=== PATIENT | male | born 1940 | race Caucasian/White ===

== ENCOUNTER 2022-05-17 10:40 | Inpatient (IN) | payer MEDICARE, SELFPAY ==
[2022-04-22 12:31] VITALS: BMI 38.0
[2022-05-17] VITALS (8 sets, daily range): BP systolic 120–160; BP diastolic 75–86; PULSE 65–83; RESP 14–94; TEMP 36.2–36.7; O2SAT 92–99; BMI 38.0
[2022-05-17 11:28] LABS: COVID19 -Nasal RAPID Negative (Negative)
[2022-05-17] MEDS: LACTATED RINGERS 1,000 ML 42 ML IV (11:59)
--- NOTE | 2022-05-17 12:41 | P.HP_ITS ---
History of Present Illness History of Present Illness Date Patient Seen: 05/17/22 Time Patient Seen: 12:42 Chief complaint: RT TSA Narrative: Blair is a 82-year-old male with rotator cuff arthropathy which he is had for years, symptoms progressively getting worse. He has failed all nonoperative management to this point. He is had no changes in his symptoms since I last saw him in clinic. 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) CAD (coronary artery disease) Dyslipidemia Easy bruisability First degree AV block Grade II diastolic dysfunction HTN (hypertension) IVCD (intraventricular conduction defect) Osteoarthritis Thrombocytopenia Varicose veins of both lower extremities Viral encephalitis Surgical History (Updated 05/17/22 @ 11:28 by Allyson Soliman RN) History of cardiac cath History of carpal tunnel surgery of left wrist History of carpal tunnel surgery of right wrist History of total left knee replacement History of total right knee replacement Hx of bilateral cataract extraction Hx of colonoscopy Hx of oral surgery Hx of tonsillectomy S/P AVR (aortic valve replacement) (03/03/19) 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) Social History household members: spouse Smoking Status: Former smoker alcohol intake: former Meds Home Medications and Allergies Home Medications Medication Instructions Recorded Confirmed Type acetaminophen 325 mg tablet 650 mg PO DAILY PRN Pain 04/22/22 05/17/22 History aspirin 81 mg capsule 81 mg PO DAILY 04/22/22 05/17/22 History atorvastatin 80 mg tablet 80 mg PO QPM 04/22/22 05/17/22 History hydrochlorothiazide 12.5 mg tablet 12.5 mg PO DAILY 04/22/22 05/17/22 History lisinopril 5 mg tablet 5 mg PO DAILY 04/22/22 05/17/22 History terazosin 5 mg capsule 5 mg PO BEDTIME 04/22/22 05/17/22 History Allergies Allergy/AdvReac Type Severity Reaction Status Date / Time No Known Drug Allergies Allergy Verified 05/17/22 11:27 Review of Systems Review of Systems ROS: Yes All systems reviewed with the patient and are negative except as otherwise documented Exam Vital Signs (past 8 hours): - 05/17/22 11:29 Temperature 97.1 F L Pulse Rate 83 Respiratory Rate 20 Blood Pressure 160/75 H Pulse Oximetry 99 Oxygen Delivery Method Room Air Oxygen Delivery Method Room Air Narrative Exam Narrative: HEENT: Head atraumatic eyes anicteric moist mucous membranes Cardiovascular: Palpable peripheral pulses extremities are warm and well perfused Respiratory: Breathing comfortably on room air Psychiatric: Appropriate mood and affect Neuro: No acute deficits Musculoskeletal: Forward elevation 10? active due to weakness, 90? passive limited by pain. No lesions about the shoulder. Sensation intact to light to uch median, radial, ulnar nerve distributions. 2+ radial pulse with brisk capillary refill less than 2 seconds Objective Labs 05/17/22 12:30 Labs: Laboratory Results - last 24 hr 05/17/22 11:09 SARS-CoV-2 (PCR) Negative Assessment & Plan Assessment & Plan narrative: 82-year-old male with rotator cuff arthropathy Plan: Discussed moving forward with a reverse total shoulder arthroplasty which patient wished to do today. Risks and benefits of surgery were discussed again including the risk of infection, damage to internal structures, bleeding, nerve injury, instability, need for revision surgery, blood clots, anesthesia and . No guarantees were made regarding outcomes. Patient expressed understanding and accepted these risks and wished to go forward with surgery and consent was signed. Patient expressed understanding with the risks. Consent was signed and his right shoulder was marked with my initials.
[2022-05-17 12:43] LABS: Add Manual Diff / Slide Review NO; Basophils Absolute Auto 0 /uL (0-100); Basophils Percent Auto 0.5 % (0-2); Eosinophils Absolute Auto 100 /uL (0-450); Eosinophils Percent Auto 1.6 % (2-4); Hematocrit 42.6 % (41-53); Hemoglobin 14.4 g/dL (13.5-17.5); Lymphocytes Absolute Auto 800 /uL (1100-4500); Lymphocytes Percent Auto 11.3 % (25-40); Mean Corpuscular HGB Conc 33.8 % (30-36); Mean Corpuscular Volume 88.9 fL (80-100); Monocytes Absolute Auto 700 /uL (0-900); Monocytes Percent Auto 9.6 % (3-14); Neutrophils Absolute Auto 5400 /uL (1500-7000); Platelet Count 97 X10^3/uL (150-400); Red Cell Distribution Width 13.3 % (11.6-14.8)
--- NOTE | 2022-05-17 13:11 | SUR.PREOP ---
Block start time [1315] . Monitoring initiated and maintained throughout procedure. Oxygen and medications given per anesthesiologist instructions. Patient remained stable throughout procedure, no adverse reactions noted. Block end time [1320].
--- NOTE | 2022-05-17 13:22 | SUR.PREOP ---
Nerve block completed with no complications.
[2022-05-17] MEDS: CEFAZOLIN VIAL 1 GM in SODIUM CHLORIDE 0.9% 100 ML IV (13:45)
[2022-05-17] MEDS: CEFAZOLIN 2 GM/100 ML PREMIX 100 ML IV (13:45)
[2022-05-17] MEDS: TRANEXAMIC ACID 1,000 MG VIAL 1000 MG INJ ×2 (13:59→15:14)
--- NOTE | 2022-05-17 14:07 | SUR.OPER ---
Beach chair with Skytron shoulder positioner. Lower body on padded OR bed. Head in foam padded head cradle, secured with straps. Non-operative arm secured <90 degrees abduction, at side padded by pillows and secured with tape. Pillows under knees. Safety belt at thigh. Cloth tape over blanket over lower legs. Cloth tape over torso to secure
[2022-05-17] MEDS: BUPIVACAINE 0.25% (PF) 10 ML, EPINEPHrine 0.05 MG INJ (15:05)
--- NOTE | 2022-05-17 15:49 | DI.RAD.S_ITS ---
PROCEDURE: XR SHOULDER RT 1V INDICATIONS: s/p total shoulder arthroplasty TECHNIQUE: 1 views of the shoulder were acquired. COMPARISON: None. FINDINGS: Bones: Total right shoulder arthroplasty in good position. No evidence of hardware failure. Overlying skin vinod noted Soft tissues: No suspicious soft tissue calcifications. IMPRESSION: Total right shoulder arthroplasty in position Approved by: Michael Genao M.D. on 05/17/2022 at 15:31
--- NOTE | 2022-05-17 15:50 | PM.OP.1 ---
Operative Date/Time/Diagnoses Date of procedure: 05/17/22 Time of procedure: 15:50 Pre-op diagnosis: Right rotator cuff arthropathy Post-op diagnosis: same Procedure & Clinicians Procedure: Right reverse total shoulder arthroplasty Same procedure as scheduled: Yes Indications: Indications: This is a 82-year-old male who has rotator cuff arthropathy. Symptoms have been present for years, insidious onset. Patient has failed conservative therapy including injections, physical therapy, anti-inflammatories and activity modification. After extensive discussion in clinic, they wished to go forward with surgery. Risks and benefits were described including the risk of infection, bleeding, damage to internal structures including nerves. We also discussed the risk of failure of surgery and the need for revision surgery as well as the risk of anesthesia. The patient expressed understanding with these risks and wished to go forward with surgery. Surgeon: Stefan [employer] Supervisor: Ivonne Aguilera Anesthesia Type: General Operative Notes Findings: Findings: Osteoarthritis of the glenoid and humeral head as well as a defient rotator cuff as noted on preoperative imaging and under direct visualization Closure Type: primary Specimen(s): none sent Prosthetic devices, grafts, tissues, transplants, or devices: Tornier implants Base plate: standard 25 mm, full wedge Glenosphere: 39 mm Stem: Perform for Poly: +0 concentric Estimated Blood Loss (mL): 50 Procedure in detail: Patient was seen in the preoperative holding unit. The correct right shoulder was identified and marked with my initials. Again we discussed the risks and benefits of surgery and they wished to go forward with surgery. The patient was brought back to the operating room and placed supine on the operating table. Smooth endotracheal intubation was performed by anesthesia. All prominences were padded and they were placed into the beach chair position. Intravenous antibiotics were given. The right shoulder was then prepped with the standard sterile preparation and draping. A time-out was then performed in my initials were again identified on the correct shoulder. 1 g of IV tranexamic acid was given. A standard deltopectoral incision was made. Skin flaps were made. The cephalic vein was identified and retracted laterally. This was protected throughout the remainder of the case. Sharp dissection was made along the deltoid, subacromial and subcoracoid space to release adhesions. The conjoined tendon was identified and the axillary nerve was palpated and continuous using the tug test. It was protected throughout the remainder of the case. A brown retractor was placed underneath the deltoid muscle and a darach retractor underneath the conjoint tendon. The anterior circumflex artery and associated veins on the lower border of the subscapularis were identified and tied off using 0-Vicryl. The biceps tendon was identified in the bicipital groove. This was released from its sheath, and taken from its origin on the glenoid and tied into the pectoralis tendon for a solid tenodesis. We then began a subscapularis peel. The subscapularis was tagged with an Ethibond suture. A 360 degree circumferential release of the subscapularis was performed with protection of the axillary nerve. The coracohumeral ligament was released at the base of the coracoid. The coracoacromial ligament was left intact. The shoulder was then dislocated. Osteophytes were removed using combination of rongeur and osteotome. The rotator cuff was noted to be insufficient. An intramedullary guide was used set at version of 30?. Using an oscillating saw a conservative humeral head cut was made. Impaction reamers were reamed up to a size 4 stem with a built-in angle 135?. A neck protector was placed. Attention was then turned to the glenoid. After retracting the humeral head posteriorly a circumferential release was performed of the capsule with protection of the axillary nerve. The labrum was then released starting at the biceps anchor and going around the rim a small amount of triceps was released from the inferior glenoid. A center guide pin was then placed using the guide, followed by Reamer. After adequate cartilage was removed the center drill hole was drilled and measured. The base plate was then implanted and screwed into place. The superior drill hole was drilled and filled in a nonlocking fashion, followed by the inferior and anterior holes in locking fashion, the posterior hole was also filled. A 39 glenosphere was then selected and screwed into place onto the base plate. Turning back to the humerus, the humeral head was delivered and trialed with a 0 concentric. The arm was taken through range of motion and this was felt to be stable. The trial was then removed and a dilute Betadine wash was then performed with 1 L of sterile saline. Before placing the final implant, drill holes were made in the bicipital groove for the subscapularis repair, and sutures were passed through the drill holes. The final stem was then impacted into the humerus. The shoulder was then reduced and again brought through range of motion and was felt to be stable. The interval was then closed using #2 Ethibond. The subscapularis was then repaired using a modified racking hitch with nice loupes. The deltopectoral interval was then closed with #2 Ethibond. The skin was closed with 2-0 PDS and vinod followed by Aquacel dressing. Patient was awoken from anesthesia and brought back to the postoperative recovery unit without issue. They were placed into a sling. Assisting participation: This operation could not have been safely performed (without compromising the technical results or length of the procedure) without the assistance of a skilled surgical dental assistant. The surgical dental assistant was medically necessary for proper positioning, retraction and manipulation of instruments, proper exposure, graft prep, and manipulation of tissue. Complications: none Post-operative Condition: stable Disposition: PACU Plan for aftercare: Postoperative instructions: Sling to remain on for 6 weeks. No external rotation past neutral for 6 weeks. Okay for him to come off her shower. Okay to shower over the Aquacel dressing. If any water gets underneath the dressing, remove the dressing. First postoperative visit in 2 weeks.
[2022-05-17] MEDS: ONDANSETRON 4 MG/2 ML INJ IV (16:46)
== END 2022-05-17 17:25 | disposition home or self-care (01) | DRG 483 ==
PROVIDERS: Admitting Provider Orthopaedic Surgery; PCP Family Medicine; Referring Provider Orthopaedic Surgery; Visit Provider Orthopaedic Surgery
PROC: 0RRJ00Z Replacement of Right Shoulder Joint with Reverse Ball and Socket Synthetic Substitute, Open Approach (ICD-10-PCS; CPT 23472; principal; 2022-05-17 13:00)
DX: M19.011 Primary osteoarthritis, right shoulder (principal); Z87.891 Personal history of nicotine dependence; Z20.822 Contact with and (suspected) exposure to COVID-19
CPT/HCPCS: 64450; 73020; 85025; 87635; C1776; C9803; J0171; J0690; J2250; J2405; J2704; J3010